=== PATIENT | female | born 1990 | race Two or more races ===

== ENCOUNTER 2025-04-01 17:27 | Emergency (ER) | payer OTHER ==
[~2025-04-01] VITALS: Ht 147.3 cm; Wt 89.4 kg
[2025-04-01] MEDS ORDERED: DEXTROSE 5 % AND 0.9 % NACL 1,000 ML IV SCH (19:15)
[2025-04-01 20:54] LABS: BASO % 0.5 % (0.1-1.2); EOS # 0.08 (0.04-0.54); EOS % 1.4 % (0.7-7.0); LYMPH # 1.78 (1.18-3.74); LYMPH % 30.1 % (19.3-53.1); MEAN PLATELET VOLUME 9.40 fl (9.4-12.4); MONO # 0.36 (0.24-0.82); MONO % 6.1 % (4.7-12.5); NEUT # 3.66 (1.56-6.13); NEUT % 61.9 % (34.0-71.1); RED CELL DISTRIBUTION WIDTH 11.8 % (11.6-14.4)
[2025-04-01 21:45] LABS: ALT/SGPT 26.0 U/L (12-78); AST/SGOT 10.0 U/L (15-37); BILIRUBIN TOTAL 0.5 mg/dL (0.3-1.2); BILIRUBIN,CONJUGATED 0.16 mg/dL (0.0-0.2); BUN CREA RATIO 17.0 (7.0-25.0); CREATININE SERUM 0.52 mg/dL (0.55-1.02); GFR 135.8; GLOBULINA 3.8 G/DL (2.4-3.5); GLUCOSE FASTING 101.0 mg/dL (65-100); OSMOLALITY SERUM 282.0 MOSM/KG (275-295)
[2025-04-01 22:12] LABS: URINE APPEARANCE Cloudy; URINE BILIRRUBIN Negative (NEGATIVE); URINE BLOOD Negative; URINE COLOR Yellow; URINE GLUCOSE Negative (NEGATIVE); URINE KETONE Negative (NEGATIVE); URINE LEUKOCYTE Trace; URINE NITRATE Negative; URINE PROTEIN Negative (NEGATIVE); URINE UROBILINOGEN 1.0 E.U./dl
[2025-04-01 22:16] LABS: URINE BACTERIA 7798.8 uL (0.0-1933); URINE EPITHELIAL CELLS 145.8 uL (0.0-38.8); URINE RBC 14.6 uL (0.0-20.8); URINE WBC 100.3 uL (0.0-23.2)
[2025-04-01 22:33] LABS: ob POSITIVE (NEGATIVE)
[2025-04-01 22:34] LABS: FECAL LEUKOCYTES NEGATIVE (NEGATIVE)
[2025-04-01 22:45] LABS: TYPE CELLS SQUAMOUS; URINE CAST 0.73 uL (0.0-1.40); URINE MUCUS MODERATE
== END 2025-04-02 01:02 | disposition home or self-care (01) ==
LOC: ER 17:28
PROVIDERS: Physician Assistant Medical
DX: K52.89 Other specified noninfective gastroenteritis and colitis (principal); N39.0 Urinary tract infection, site not specified; Z88.6 Allergy status to analgesic agent; Z88.1 Allergy status to other antibiotic agents; G43.909 Migraine, unspecified, not intractable, without status migrainosus; J45.909 Unspecified asthma, uncomplicated; E28.2 Polycystic ovarian syndrome; F41.8 Other specified anxiety disorders